=== PATIENT | male | born 1950 | race Caucasian/White ===

== ENCOUNTER → 2016-06-16 | Outpatient (CLI) | payer OTHER | LOC: FIMAGING 13:05 | PROVIDERS: ATTEND Family Medicine | DX: R05 Cough (principal); Z87.891 Personal history of nicotine dependence ==

== ENCOUNTER → 2016-12-13 | Outpatient (CLI) | payer OTHER | LOC: FIMAGING 14:59 | PROVIDERS: ATTEND Family Medicine | DX: R05 Cough (principal); Z87.891 Personal history of nicotine dependence ==

== ENCOUNTER 2017-04-12 09:29 | Emergency (ER) | payer OTHER ==
[2017-04-12 09:39] VITALS: TEMP 97.8
[2017-04-12 10:45] LABS: PLATELET COUNT 209 10^3/uL (150-400)
[2017-04-12] MEDS ORDERED: NS 1,000 ML IV ONE (10:45)
--- NOTE | 2017-04-12 10:45 | EDPHY ---
H & P Time Seen by Provider: 04/12/17 10:12 HPI/ROS: CHIEF COMPLAINT: Shortness of breath, left lateral chest discomfort HISTORY OF PRESENT ILLNESS: The patient is a 67-year-old male who was sent from his primary care physician's office for further evaluation. The patient states that for the past 10 days he has been feeling ill. He has felt generalized exhaustion. He has had a cough that is nonproductive in worse at night. He also has left lateral lower rib discomfort. He reports point tenderness.. He has had no nausea or vomiting. No abdominal pain. Patient describes mild confusion, and increased difficulty with walking. REVIEW OF SYSTEMS: My complete review of systems is negative except as mentioned in the HPI. Past Medical/Surgical History: Includes diabetes, gait abnormality, GERD, hyperlipidemia, osteomyelitis, peripheral neuropathy, sleep apnea Past surgical history: Diskectomy Smoking Status: Former smoker Physical Exam: 36.6, 158/95, 79, 19, 93% on room air GENERAL: No acute distress, alert. HEENT: Eyes normal to inspection, normal pharynx, no signs of dehydration. NECK: No thyromegaly, no lymphadenopathy, supple. RESPIRATORY: Clear to auscultation bilaterally, no rales, rhonchi or wheezing. CVS: Regular rate and rhythm, no rubs, murmurs, or gallops. ABDOMEN: Soft, nontender, nondistended, no organomegaly. BACK: Normal to inspection, no CVA tenderness. SKIN: Normal color, no rash, warm, dry. No pallor. EXTREMITIES: No pedal edema, no calf tenderness, no Homans sign or cords, no joint swelling. NEURO/PSYCH: Alert and oriented x3, normal mood and affect, normal motor sensory exam. No obvious cranial nerve deficit. Constitutional: Initial Vital Signs Temperature (C) 36.6 C 04/12/17 09:35 Heart Rate 79 04/12/17 09:35 Respiratory Rate 19 04/12/17 09:35 Blood Pressure 158/95 H 04/12/17 09:35 O2 Sat (%) 93 04/12/17 09:35 O2 Delivery Mode Room Air Allergies/Adverse Reactions: No Known Allergies Allergy (Unverified 04/12/17 09:35) Home Medications: Medication Instructions Recorded Metformin 1000 mg 04/12/17 Medical Decision Making - Diagnostics Imaging Results: Imaging Impressions Chest X-Ray 04/12/17 10:41 Impression: No evidence of acute cardiopulmonary abnormality. ED Course/Re-evaluation: In the emergency department I discussed possible etiologies with the patient. I answered all his questions. I discussed the case with Dr. Tovar in his head the patient to the emergency department. I also reviewed the note that was sent with the patient. Laboratory studies, EKG and chest x-ray were ordered. CBC is normal. Chemistry panel notable for glucose of 288. Troponin negative. BNP 36. D-dimer negative. EKG shows normal sinus rhythm, normal rate, normal axis, normal intervals. There are no ST or T-wave abnormalities. EKG is normal as interpreted by me. Chest x-ray: No acute disease. I discussed the case with Dr. Ku. He reviewed the results. He feels comfortable having the patient discharged. Patient will follow up with him on Saturday at 12:30 p.m.. An appointment was made. I discussed this with the patient. I answered all his questions. He is given warnings prior to leaving. Differential Diagnosis: My differential includes but is not limited to pneumonia, bronchitis, PE, reactive airway disease, ACS, acute PR, electrolyte abnormality, sugar abnormality, DKA - Data Points Laboratory Results: Laboratory Results 04/12/17 10:30 04/12/17 10:30 04/12/17 04/12/17 04/12/17 10:30 10:30 10:30 WBC 6.57 10^3/uL 10^3/uL (3.80-9.50) RBC 5.34 10^6/uL 10^6/uL (4.40-6.38) Hgb 16.9 g/dL g/dL (13.7-17.5) Hct 47.2 % % (40.0-51.0) MCV 88.4 fL fL (81.5-99.8) MCH 31.6 pg pg (27.9-34.1) MCHC 35.8 g/dL g/dL (32.4-36.7) RDW 12.4 % % (11.5-15.2) Plt Count 209 10^3/uL 10^3/uL (150-400) MPV 9.4 fL fL (8.7-11.7) Neut % (Auto) 65.9 % % (39.3-74.2) Lymph % (Auto) 23.4 % % (15.0-45.0) [place] % (Auto) 5.8 % % (4.5-13.0) Eos % (Auto) 3.7 % % (0.6-7.6) Baso % (Auto) 0.3 % % (0.3-1.7) Nucleat RBC Rel Count 0.0 % % (0.0-0.2) Absolute Neuts (auto) 4.33 10^3/uL 10^3/uL (1.70-6.50) Absolute Lymphs (auto) 1.54 10^3/uL 10^3/uL (1.00-3.00) Absolute Monos (auto) 0.38 10^3/uL 10^3/uL (0.30-0.80) Absolute Eos (auto) 0.24 10^3/uL 10^3/uL (0.03-0.40) Absolute Basos (auto) 0.02 10^3/uL 10^3/uL (0.02-0.10) Absolute Nucleated RBC 0.00 10^3/uL 10^3/uL (0-0.01) Immature Gran % 0.9 % % (0.0-1.1) Immature Gran # 0.06 10^3/uL 10^3/uL (0.00-0.10) PT 13.3 SEC SEC (12.0-15.0) INR 0.99 (0.83-1.16) APTT 25.7 SEC SEC (23.0-38.0) D-Dimer 0.38 ug/mLFEU ug/mLFEU (0.00-0.50) Sodium 139 mEq/L mEq/L (135-145) Potassium 4.4 mEq/L mEq/L (3.5-5.2) Chloride 103 mEq/L mEq/L (97-110) Carbon Dioxide 25 mEq/l mEq/l (22-31) Anion Gap 11 mEq/L mEq/L (8-16) BUN 14 mg/dL mg/dL (7-23) Creatinine 1.1 mg/dL mg/dL (0.7-1.3) Estimated GFR > 60 Glucose 288 mg/dL H mg/dL (70-100) Calcium 9.4 mg/dL mg/dL (8.5-10.4) Troponin I < 0.012 ng/mL ng/mL (0.000-0.034) NT-Pro-B Natriuret Pep 36 pg/mL pg/mL (0-125) Medications Given: Discontinued Medications Sodium Chloride (Ns) 1,000 mls @ 0 mls/hr IV ONCE ONE PRN Reason: Wide Open Stop: 04/12/17 10:46 Last Admin: 04/12/17 11:00 Dose: 1,000 mls Ketorolac Tromethamine (Toradol) 30 mg IVP EDNOW ONE Stop: 04/12/17 11:39 Last Admin: 04/12/17 11:55 Dose: 30 mg Departure - Departure Disposition: Home, Routine, Self-Care Clinical Impression: Hyperglycemia, Bronchitis Condition: Good Instructions: Acute Bronchitis (ED) Additional Instructions: Return with increasing chest pain, shortness of breath or any other concerns. You have an appointment with your primary care physician at 12:30 p.m on Saturday. Referrals: Lonnie Fong MD [Primary Care Provider] - 04/15/17 12:30 pm
[2017-04-12 10:53] LABS: INR 0.99 (0.83-1.16); PROTIME(PATIENT) 13.3 SEC (12.0-15.0)
[2017-04-12 11:27] VITALS: PULSE 75
--- NOTE | 2017-04-12 11:28 | CPEKG ---
Heart Rate: 74 RR Interval: 811 P-R Interval: 164 QRSD Interval: 74 QT Interval: 376 QTC Interval: 418 P [place]: 49 QRS [place]: 1 T Wave [place]: 84 EKG Severity - NORMAL ECG - EKG Impression: SINUS RHYTHM Electronically Signed By: Alexander Craven 13-Apr-2017 07:24:46
[2017-04-12] MEDS ORDERED: KETOROLAC 30 MG/1 ML SDV IVP ONE (11:38)
[2017-04-12 13:57] VITALS: BP 165/100; RESP 12; O2SAT 95
== END 2017-04-12 13:56 | disposition home or self-care (01) ==
DX: E11.65 Type 2 diabetes mellitus with hyperglycemia (principal); J40 Bronchitis, not specified as acute or chronic; Z79.84 Long term (current) use of oral hypoglycemic drugs; Z87.891 Personal history of nicotine dependence
CPT/HCPCS: 71046; 93005; 96361; 96374; 99285; J1885